=== PATIENT | female | born 1960 | race Two or more races ===

== ENCOUNTER 2017-09-04 11:03 | Outpatient (CLI) | payer OTHER ==
[~2017-09-04 11:03] MED LIST: NABUMETONE500 MG PO; PERCOCET 5/3251 TAB PO
== END 2017-09-04 17:00 | disposition home or self-care (01) ==
LOC: SONOGRAMA 11:03
DX: N95.0 Postmenopausal bleeding (principal)

== ENCOUNTER 2017-09-12 08:08 | Outpatient (CLI) | payer OTHER | END 2017-09-12 08:09 | disposition home or self-care (01) | LOC: LAB 08:08 | DX: N95.1 Menopausal and female climacteric states (principal); N95.0 Postmenopausal bleeding ==

== ENCOUNTER → 2018-01-02 13:46 | Outpatient (CLI) | payer OTHER | END | disposition home or self-care (01) | LOC: LAB 13:46 | DX: D25.9 Leiomyoma of uterus, unspecified (principal); N30.81 Other cystitis with hematuria; R82.79 Other abnormal findings on microbiological examination of urine ==

== ENCOUNTER 2018-11-29 10:41 | Outpatient (CLI) | payer OTHER | END 2018-11-29 10:50 | disposition home or self-care (01) | LOC: EDBD 10:41 → MAMO-SONO 10:41 | DX: Z12.31 Encounter for screening mammogram for malignant neoplasm of breast (principal); Z87.898 Personal history of other specified conditions; N60.11 Diffuse cystic mastopathy of right breast; N60.12 Diffuse cystic mastopathy of left breast ==

== ENCOUNTER → 2019-01-07 09:10 | Outpatient (CLI) | payer OTHER | END | disposition home or self-care (01) | LOC: LAB 09:10 | DX: J11.1 Influenza due to unidentified influenza virus with other respiratory manifestations (principal) ==

== ENCOUNTER → 2020-08-23 08:42 | Outpatient (CLI) | payer OTHER | END | disposition home or self-care (01) | LOC: LAB 08:42 | PROVIDERS: ATTEND Dentist General Practice | DX: Z20.828 Contact with and (suspected) exposure to other viral communicable diseases (principal) ==

== ENCOUNTER 2023-04-02 10:48 | Emergency (ER) | payer OTHER ==
[~2023-04-02] VITALS: Ht 157.5 cm; Wt 81.6 kg
[2023-04-02] MEDS ORDERED: LOSARTAN POTASS25 MG (11:18)
[2023-04-02] MEDS ORDERED: KETOROLAC TROMETHAMINE 60 MG VIAL IM ONE (11:30)
== END 2023-04-02 13:50 | disposition home or self-care (01) ==
LOC: ER 10:48
DX: M25.561 Pain in right knee (principal); I10 Essential (primary) hypertension